=== PATIENT | female | born 1950 | race African-American/Black ===

== ENCOUNTER → 2016-09-03 | Outpatient (CLI) | payer BC, MEDICARE ==
[~2016-09-03] MED LIST: VIT D3; VIT1TABL77 PO
--- NOTE | 2016-09-03 12:08 | RADRPT ---
PROCEDURE: XR Right hip and pelvis. CLINICAL INDICATION: Right hip pain. Pelvic pain. Postop. TECHNIQUE: Three views. Frontal pelvis. Frontal and lateral right hip. COMPARISON: 09/05/2015. FINDINGS: There is no fracture or dislocation. The soft tissues are normal. There is a right hip total arthroplasty which appears satisfactory. The left hip is grossly normal. There is no lytic or blastic lesion. The upper pelvis is not completely included on the image. IMPRESSION: 1. Satisfactory postoperative appearance of the right hip. 2. Grossly normal appearance of the left hip. RPTAT: QQ .Ector Wiggins MD, MD Date Time Electronically viewed and signed by .Ector Wiggins MD, on 09/03/2016 12:08 .R/
== END | disposition home or self-care (01) ==
LOC: HKI 08:43
PROVIDERS: ATTEND Orthopaedic Surgery
DX: M48.06 Spinal stenosis, lumbar region (principal); M51.36 Other intervertebral disc degeneration, lumbar region; Z96.641 Presence of right artificial hip joint
CPT/HCPCS: 73502; G0463